=== PATIENT | male | born 1960 | race Caucasian/White ===

== ENCOUNTER 2016-10-12 11:37 | Emergency (ER) | payer OTHER ==
--- NOTE | 2016-10-12 11:59 | EDM.PDOC ---
ED HPI GENERAL MEDICAL PROBLEM - General Chief Complaint: Neuro Symptoms/Deficits Stated Complaint: CONFUSSED Time Seen by Provider: 10/12/16 11:38 Source of Information: Reports: Patient History Limitations: Reports: Altered Mental Status - History of Present Illness INITIAL COMMENTS - FREE TEXT/NARRATIVE: 56 y.o.w.m came by PC because he is "confused". Pt was OX3, could not explain what he was confused about. His will not come the the ED. Pt denies any pain, N/V/D or dizziness. He said, if some body talks to his, he can not understand what she or he is saying. Finally, we received the correct phone number of his . as per Pt's he appeared entirely nl at that 9pm last night. This morning, he call her from work and could not find the words he wanted to say. She advised him to go to the ed. Pt does not remember his meds he is taking. Pt denied any pain or discomfort. BP 127/91 pulse 104 Temp 36.9 RR 18 Total stroke score was 1 Onset: Unknown/Unsure Onset Date: 10/11/16 Onset Time: 21:00 Duration: Hour(s):, Constant Location: Reports: Head Quality: Reports: Other (confusion, word finding difficulties) - Related Data Allergies Allergy/AdvReac Type Severity Reaction Status Date / Time Penicillins Allergy Cannot Verified 10/12/16 11:53 Remember Home Meds: Home Meds .Bp Med 10/12/16 [History] .Cholesterol Med 10/12/16 [History] ED ROS GENERAL - Review of Systems Review Of Systems: Unable To Obtain (due to confusion) ED EXAM, NEURO - Physical Exam Exam: See Below Exam Limited By: Altered Mental Status General Appearance: Alert, WD/WN, No Apparent Distress, Obese Eye Exam: Bilateral Eye: Normal Inspection Ears: Normal External Exam Nose: Normal Inspection, Normal Mucosa, No Blood Throat/Mouth: Normal Inspection, Normal Lips Head Exam: Atraumatic, Normocephalic Neck: Normal Inspection, Supple, Non-Tender, Full Range of Motion Respiratory/Chest: No Respiratory Distress, Lungs Clear, Normal Breath Sounds Cardiovascular: Normal Peripheral Pulses, Regular Rate, Rhythm, No Edema, No Gallop GI/Abdominal: Normal Bowel Sounds, Soft, Non-Tender, No Organomegaly (Male) Exam: Deferred Rectal (Males) Exam: Deferred Neurological: Alert, Normal Mood/Affect, Normal Dorsiflexion, CN II-XII Intact, Normal Gait, Normal Reflexes, Oriented x 3, Other (word finding difficulties) Back Exam: Normal Inspection, Full Range of Motion Extremities: Normal Inspection, Normal Range of Motion, Non-Tender, No Pedal Edema Psychiatric: Other (word finding difficulties) Skin Exam: Warm, Dry, Intact, Normal Color, No Rash EKG INTERPRETATION EKG Date: 10/12/16 Time: 11:45 Rhythm: NSR Rate (Beats/Min): 102 [place]: Normal P-Wave: Present QRS: Normal ST-T: Normal QT: Normal Comparison: NA - No Prior EKG Course - Vital Signs Text/Narrative:: 56 y.o.w.m came by PC because he is "confused". Pt was OX3, could not explain what he was confused about. His will not come the the ED. Pt denies any pain, N/V/D or dizziness. He said, if some body talks to his, he can not understand what she or he is saying. Finally, we received the correct phone number of his . as per Pt's he appeared entirely nl at that 9pm last night. This morning, he call her from work and could not find the words he wanted to say. She advised him to go to the ed. Pt does not remember his meds he is taking. Pt denied any pain or discomfort. BP 127/91 pulse 104 Temp 36.9 RR 18 Total stroke score was 1 PE: Morbid obese 56 y.o.w.m no focal neurological deficit, FN, FF, MS and gait were nl. Pt could not explain why he came to the ED. He said confusin? dry mucosal membranes, skin turgor decreases Total stroke score: 1 Labs: CBC wnl, BMP potassium 3.4 Na 135 Cl 99 Glc 125 Imaging: CT head neg. MRI brain -+ contrast: Pending Impression: Aphasia, word finding difficulty, obesity, hypokalemia. dehydration Tx: NS, potassium 3.08 pm: Dr. Keita, Hospitalsit: [facility]: No Neurologist here at [facility] 3.12 pm Consultation: Dr. Parsons, Neurologist [facility]: Admit to Hospitalist at [facility]. Dr. Bowman, Hospitalist at [facility] accepted the patient for transfer and further care. Plan: and patient agreed to the transfer to [facility]. Last Recorded V/S: Last Vital Signs Temp 36.9 C 10/12/16 11:38 Pulse 104 H 10/12/16 11:38 Resp 18 10/12/16 11:38 BP 127/91 H 10/12/16 11:38 Pulse Ox 98 10/12/16 11:38 - Orders/Labs/Meds Orders: Active Orders 24 hr Category Date Time Status Brain wo Cont [MR] Stat Exams 10/12/16 14:48 Ordered EKG 12 Lead [EK] Routine Ther 10/12/16 11:45 Ordered Labs: Laboratory Tests 10/12/16 10/12/16 10/12/16 Range/Units 11:55 12:03 12:03 WBC 8.1 (4.5-12.0) X10-3/uL RBC 4.95 (4.30-5.75) x10(6)uL Hgb 14.8 (11.5-15.5) g/dL Hct 44.7 (30.0-51.3) % MCV 90.2 (80-96) fL MCH 29.9 (27.7-33.6) pg MCHC 33.1 (32.2-35.4) g/dL RDW 13.9 (11.5-15.5) % Plt Count 217 (125-369) X10(3)uL MPV 8.1 (7.4-10.4) fL Neut % (Auto) 52.3 (46-82) % Lymph % (Auto) 35.5 (13-37) % [place] % (Auto) 9.8 (4-12) % Eos % (Auto) 2 (1.0-5.0) % Baso % (Auto) 1 (0-2) % Neut # (Auto) 4.2 (1.6-8.3) # Lymph # (Auto) 2.9 (0.6-5.0) # [place] # (Auto) 0.8 (0.0-1.3) # Eos # (Auto) 0.2 (0.0-0.8) # Baso # (Auto) 0.0 (0.0-0.2) # PT 10.6 (8.7-11.1) INR 1.05 (0.89-1.13) Sodium 135 (135-145) mmol/L Potassium 3.4 L (3.5-5.3) mmol/L Chloride 99 L (100-110) mmol/L Carbon Dioxide 24 (23-29) mmol/L BUN 18 (5-20) mg/dL Creatinine 1.0 (0.6-1.3) mg/dL Est Cr Clr Drug Dosing TNP Estimated GFR (MDRD) > 60 (>60) BUN/Creatinine Ratio 18.0 (9-20) Glucose 121 H (80-116) mg/dL Calcium 10.0 (8.6-10.2) mg/dL Total Bilirubin 0.7 (0.1-1.3) mg/dL Direct Bilirubin 0.1 (0.1-0.2) mg/dL AST 26 (5-27) IU/L ALT 37 H (14-26) IU/L Alkaline Phosphatase 53 L (56-112) IU/L Total Protein 7.7 (6.0-8.0) g/dL Albumin 4.4 (3.5-5.2) g/dL Amylase 62 (28-100) U/L Urine Color (YELLOW) Urine Appearance (CLEAR) Urine pH (5.0-6.5) Ur Specific [place] (1.010-1.025) Urine Protein (NEGATIVE) mg/dL Urine Glucose (UA) (NEGATIVE) mg/dL Urine Ketones (NEGATIVE) mg/dL Urine Occult Blood (NEGATIVE) Urine Nitrite (NEGATIVE) Urine Bilirubin (NEGATIVE) Urine Urobilinogen (NEGATIVE) mg/dL Ur Leukocyte Esterase (NEGATIVE) Urine WBC (0) Ur Squamous Epith Cells (NS,R,O) Urine Bacteria (NS) Salicylates < 4.0 L (5.0-25.0) mg/dL Urine Opiates Screen (NEGATIVE) Ur Oxycodone Screen (NEGATIVE) Ur Propoxyphene Screen (NEGATIVE) Acetaminophen < 10 L (10-30) ug/mL Ur Barbituates Screen (NEGATIVE) Ur Tricyclics Screen (NEGATIVE) Ur Phencyclidine Scrn (NEGATIVE) Ur Amphetamine Screen (NEGATIVE) Urine MDMA Screen (NEGATIVE) U Benzodiazepines Scrn (NEGATIVE) U Cocaine Metab Screen (NEGATIVE) U Marijuana (THC) Screen (NEGATIVE) Ethyl Alcohol (<0.01) % 10/12/16 10/12/16 10/12/16 Range/Units 12:03 13:52 13:52 WBC (4.5-12.0) X10-3/uL RBC (4.30-5.75) x10(6)uL Hgb (11.5-15.5) g/dL Hct (30.0-51.3) % MCV (80-96) fL MCH (27.7-33.6) pg MCHC (32.2-35.4) g/dL RDW (11.5-15.5) % Plt Count (125-369) X10(3)uL MPV (7.4-10.4) fL Neut % (Auto) (46-82) % Lymph % (Auto) (13-37) % [place] % (Auto) (4-12) % Eos % (Auto) (1.0-5.0) % Baso % (Auto) (0-2) % Neut # (Auto) (1.6-8.3) # Lymph # (Auto) (0.6-5.0) # [place] # (Auto) (0.0-1.3) # Eos # (Auto) (0.0-0.8) # Baso # (Auto) (0.0-0.2) # PT (8.7-11.1) INR (0.89-1.13) Sodium (135-145) mmol/L Potassium (3.5-5.3) mmol/L Chloride (100-110) mmol/L Carbon Dioxide (23-29) mmol/L BUN (5-20) mg/dL Creatinine (0.6-1.3) mg/dL Est Cr Clr Drug Dosing Estimated GFR (MDRD) (>60) BUN/Creatinine Ratio (9-20) Glucose (80-116) mg/dL Calcium (8.6-10.2) mg/dL Total Bilirubin (0.1-1.3) mg/dL Direct Bilirubin (0.1-0.2) mg/dL AST (5-27) IU/L ALT (14-26) IU/L Alkaline Phosphatase (56-112) IU/L Total Protein (6.0-8.0) g/dL Albumin (3.5-5.2) g/dL Amylase (28-100) U/L Urine Color Yellow (YELLOW) Urine Appearance Clear (CLEAR) Urine pH 6.0 (5.0-6.5) Ur Specific [place] 1.010 (1.010-1.025) Urine Protein Negative (NEGATIVE) mg/dL Urine Glucose (UA) Normal (NEGATIVE) mg/dL Urine Ketones Negative (NEGATIVE) mg/dL Urine Occult Blood Negative (NEGATIVE) Urine Nitrite Negative (NEGATIVE) Urine Bilirubin Negative (NEGATIVE) Urine Urobilinogen Normal (NEGATIVE) mg/dL Ur Leukocyte Esterase Negative (NEGATIVE) Urine WBC 0-5 (0) Ur Squamous Epith Cells Few H (NS,R,O) Urine Bacteria Few H (NS) Salicylates (5.0-25.0) mg/dL Urine Opiates Screen Negative (NEGATIVE) Ur Oxycodone Screen Negative (NEGATIVE) Ur Propoxyphene Screen Negative (NEGATIVE) Acetaminophen (10-30) ug/mL Ur Barbituates Screen Negative (NEGATIVE) Ur Tricyclics Screen Negative (NEGATIVE) Ur Phencyclidine Scrn Negative (NEGATIVE) Ur Amphetamine Screen Negative (NEGATIVE) Urine MDMA Screen Negative (NEGATIVE) U Benzodiazepines Scrn Negative (NEGATIVE) U Cocaine Metab Screen Negative (NEGATIVE) U Marijuana (THC) Screen Negative (NEGATIVE) Ethyl Alcohol < 0.01 (<0.01) % Meds: Medications Discontinued Medications Generic Name Dose Route Start Last Admin Trade Name Freq PRN Reason Stop Dose Admin Sodium Chloride 1,000 mls @ 999 mls/hr 10/12/16 12:03 10/12/16 12:45 Normal Saline IV 10/12/16 13:03 999 mls/hr .BOLUS ONE Administration Potassium Chloride 40 meq 10/12/16 12:47 10/12/16 12:55 Klor-Con M20 PO 10/12/16 12:48 40 meq ONETIME ONE Administration Departure - Departure Time of Disposition: 15:33 Disposition: DC/Tfer to [facility] Condition: Fair Clinical Impression: Aphasia, Morbidly obese, Hypokalemia - Discharge Information Referrals: PCP,None [Primary Care Provider] - Forms: ED Department Discharge - My Orders Last 24 Hours: My Active Orders 10/12/16 11:45 EKG 12 Lead [EK] Routine 10/12/16 14:48 Brain wo Cont [MR] Stat - Assessment/Plan Last 24 Hours: My Active Orders 10/12/16 11:45 EKG 12 Lead [EK] Routine 10/12/16 14:48 Brain wo Cont [MR] Stat
[2016-10-12] MEDS ORDERED: Sodium Chloride 0.9% 1,000 ML IV ONE (12:03)
[2016-10-12 12:27] LABS: ACETAMINOPHEN < 10 ug/mL (10-30)
[2016-10-12] MEDS ORDERED: Potassium Chloride 20 MEQ Tab.ER PO ONE (12:47)
--- NOTE | 2016-10-12 14:02 | CT ---
INDICATION: Mental status change - confused at [address] HEAD WITHOUT CONTRAST: Serial contiguous 2.5 and 5-mm sections were obtained through the brain without contrast 10/12/2016, and compared with examination of 04/30/2009. Total Exam DLP = 949.36 mGy-cm. Visualized mastoid air cells and paranasal sinuses appeared to be well aerated. No definite cranial abnormality was identified. No shift of midline structures, ventricular abnormalities, or definite abnormal areas of density were identified. No bleeding site or hematoma was seen. IMPRESSION: Normal CT brain. No acute intracranial abnormalities. Depending upon clinical correlation, MRI may be of further diagnostic benefit. Report was called to Dr. Quintana at 1233 hours, 10/12/2016. [facility]
[2016-10-12] MEDS ORDERED: Gadobutrol 10 mMOL/10 ML SDV IV SCH (15:15)
[2016-10-12 16:39] VITALS: BP 133/92
== END 2016-10-12 16:00 | disposition critical access hospital (66) ==
LOC: FB.ED 11:37
DX: E87.6 Hypokalemia (principal); R47.01 Aphasia; E66.01 Morbid (severe) obesity due to excess calories; E86.0 Dehydration; Z88.0 Allergy status to penicillin
CPT/HCPCS: 36415; 70450; 70551; 80048; 80076; 80305; 81001; 82150; 85025; 85610; 93005; 96360; 99285; A9270; G0480; J7040